=== PATIENT | female | born 1970 | race Caucasian/White ===

== ENCOUNTER 2020-06-12 20:00 | Outpatient (CLI) | payer OTHER, SELFPAY | END 2020-06-12 20:01 | disposition home or self-care (01) | LOC: SLEEP 06-13 08:54 | PROVIDERS: Family Provider Family Medicine; PCP Family Medicine; Visit Provider Family Medicine | DX: G47.10 Hypersomnia, unspecified (principal); R53.83 Other fatigue; R06.83 Snoring; G47.33 Obstructive sleep apnea (adult) (pediatric) | CPT/HCPCS: 95810 ==

== ENCOUNTER 2020-08-24 13:58 | Outpatient (CLI) | payer OTHER, SELFPAY ==
--- NOTE | 2020-08-24 14:05 | MM_ITS ---
WS: [id number] BILATERAL DIGITAL SCREENING MAMMOGRAPHY WITH CAD CLINICAL INFORMATION: SCREENING HISTORY: Screening mammogram. Bilateral breast soreness COMPARISON: August 05, 2015 TECHNIQUE: Bilateral CC and MLO views. FINDINGS: The breasts are composed of heterogeneous fibroglandular density tissue, which can limit the detectio n of small underlying mass lesions. No suspicious mass, asymmetry, calcifications, or architectural d istortion. No evidence of malignancy. MM/[place] [id number] IMPRESSION: BI-RADS: 1-Negative FOLLOW UP: 1 Year Follow-up Recommend return to annual screening mammography.
== END 2020-08-24 13:59 | disposition home or self-care (01) ==
LOC: RADSHAW 14:01
PROVIDERS: PCP Family Medicine; Visit Provider Family Medicine
DX: Z12.31 Encounter for screening mammogram for malignant neoplasm of breast (principal)
CPT/HCPCS: 77067

== ENCOUNTER 2022-05-05 16:01 | Emergency (ER) | payer SELFPAY ==
[2022-05-05 16:16] VITALS: BP 142/77; PULSE 90; RESP 18; TEMP 36.3; O2SAT 97; BMI 26.2
--- NOTE | 2022-05-05 16:29 | CTR_ITS ---
PROCEDURE INFORMATION: Exam: CT Head Without Contrast Exam date and time: 05/05/2022 5:00 PM Age: 51 years old Clinical indication: Injury or trauma; Fall; Blunt trauma (contusions or hematomas); Injury date: 6 days ago TECHNIQUE: Imaging protocol: Computed tomography of the head without contrast. Radiation optimization: All CT scans at this facility use at least one of these dose optimization techniques: automated exposure control; mA and/or kV adjustment per patient size (includes targeted exams where dose is matched to clinical indication); or iterative reconstruction. COMPARISON: CR XR cervical spine 3V* [id number] 09/20/2020 5:29 PM RADIATION DOSE METRICS: Total DLP (mGy-cm): 848.37 FINDINGS: Brain: Normal. No hemorrhage. Unremarkable white matter. No mass effect. Cerebral ventricles: No ventriculomegaly. Paranasal sinuses: Visualized sinuses are unremarkable. No fluid levels. Mastoid air cells: Visualized mastoid air cells are well aerated. Bones/joints: Unremarkable. No acute fracture. Soft tissues: Unremarkable. CT/CT head wo con* [id number] IMPRESSION: No acute intracranial abnormality.
--- NOTE | 2022-05-05 16:29 | CTR_ITS ---
PROCEDURE INFORMATION: Exam: CT Cervical Spine Without Contrast Exam date and time: 05/05/2022 5:05 PM Age: 51 years old Clinical indication: Injury or trauma; Fall; Blunt trauma; Injury date: 6 days ago TECHNIQUE: Imaging protocol: Computed tomography of the cervical spine without contrast. Radiation optimization: All CT scans at this facility use at least one of these dose optimization techniques: automated exposure control; mA and/or kV adjustment per patient size (includes targeted exams where dose is matched to clinical indication); or iterative reconstruction. COMPARISON: CR XR cervical spine 3V* [id number] 09/20/2020 5:29 PM RADIATION DOSE METRICS: Total DLP (mGy-cm): 472.08 FINDINGS: Bones/joints: Mild degenerative changes are seen in the mid to lower cervical spine. No area of significant canal stenosis. No cervical spine fracture is seen. Spinal alignment is normal. Lungs: Lung apices are normal. Soft tissues: Unremarkable. CT/CT cervical spin wo con* [id number] IMPRESSION: No cervical spine fracture.
--- NOTE | 2022-05-05 16:29 | CTR_ITS ---
PROCEDURE INFORMATION: Exam: CT Maxillofacial Without Contrast Exam date and time: 05/05/2022 5:03 PM Age: 51 years old Clinical indication: Injury or trauma; Fall; Blunt trauma (contusions or hematomas); Forehead and nose; Injury date: 6 days ago TECHNIQUE: Imaging protocol: Computed tomography of the of the face without contrast. Radiation optimization: All CT scans at this facility use at least one of these dose optimization techniques: automated exposure control; mA and/or kV adjustment per patient size (includes targeted exams where dose is matched to clinical indication); or iterative reconstruction. COMPARISON: CT head wo con* [id number] 05/05/2022 5:00 PM RADIATION DOSE METRICS: Total DLP (mGy-cm): 714.01 FINDINGS: Orbital cavities: Orbits are normal. Globes are unremarkable. Bones/joints: No acute fracture. Paranasal sinuses: Normal. No air-fluid levels. Soft tissues: Unremarkable. CT/CT facial bones wo con* [id number] IMPRESSION: No facial bone fracture.
--- NOTE | 2022-05-05 16:30 | ED_ITS ---
HPI - Fall General: Chief Complaint: Fall Stated Complaint: Fell, Hit head, neck pain Time Seen by Provider: 05/05/22 16:27 History of Present Illness: 51-year-old presents due to headache and neck pain. States that she had a mechanical fall while tripping on a shopping cart Friday. She did not pass out. Denies any focal numbness weakness or tingling. Reports headache and midline neck pain. She reports ecchymosis around her eyes. Denies any other focal pain or injury. Review of Systems Narrative: - CONSTITUTIONAL: Denies weight loss, fever and chills. - HEENT: Denies changes in vision and hearing. - RESPIRATORY: Denies SOB and cough. - CV: Denies palpitations and CP. - GI: Denies abdominal pain, nausea, vomiting and diarrhea. - : Denies dysuria and urinary frequency. - MSK: Denies myalgia and joint pain. - SKIN: Denies rash and pruritus. - NEUROLOGICAL: As above - PSYCHIATRIC: Denies suicidal ideation Physical Exam Narrative: EXAM NARRATIVE: - GENERAL: Alert and oriented x 3. No acute distress. Well-nourished. - EYES: EOMI. Anicteric. - HENT: Bilateral periorbital ecchymoses, healing, no nasal septal hematoma, no hemotympanum, no bony ligamentous laxity no C-spine tenderness. Moist mucous membranes. No scleral icterus. No cervical lymphadenopathy. - LUNGS: Clear to auscultation bilaterally. No accessory muscle use. Equal lung sounds bilaterally. No respiratory distress. - CARDIOVASCULAR: Regular rate and rhythm. No murmur. No JVD. - ABDOMEN: Soft, non-tender and non-distended. Negative CVA tenderness bilaterally, no rebound or guarding, negative Ledbetter sign. No palpable masses. - EXTREMITIES: No edema. Non-tender. - SKIN: No rashes or lesions. Warm. - NEUROLOGIC: No meningismus or focal neurological deficits. CN II-XII grossly intact. - PSYCHIATRIC: Cooperative. Appropriate mood and affect. Course Vital Signs: Vital signs: Vital Signs Temperature 97.4 F L 05/05/22 16:16 Pulse Rate 90 05/05/22 16:16 Respiratory Rate 18 05/05/22 16:16 Blood Pressure 142/77 05/05/22 16:16 Pulse Oximetry 97 05/05/22 16:16 MDM - Fall Medical Decision Making 51-year-old presents due to headache and neck pain after fall. Nonfocal neurologic exam. No sign of other focal injury. CT scan of the head C-spine and facial bones not reveal any intracranial hemorrhage fracture or dislocation. At this time I believe patient would be safe for discharge and outpatient follow-up. Return precautions provided. Plan was reviewed with the patient who expressed understanding. Questions answered. Patient will follow up with PCP. Patient discharged in stable condition. Lab Data Radiology Impressions Cervical Spine CT 05/05/22 16:29 IMPRESSION: No cervical spine fracture. Face CT 05/05/22 16:29 IMPRESSION: No facial bone fracture. Head CT 05/05/22 16:29 IMPRESSION: No acute intracranial abnormality. 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
[2022-05-05] MEDS: acetaminophen 500 mg Tablet PO (16:44)
== END 2022-05-05 17:54 | disposition home or self-care (01) ==
PROVIDERS: Emergency Provider Emergency Medicine; PCP Family Medicine
DX: S09.90XA Unspecified injury of head, initial encounter (principal); W18.09XA Striking against other object with subsequent fall, initial encounter
CPT/HCPCS: 70450; 70486; 72125; 99283

== ENCOUNTER 2022-12-19 16:04 | Emergency (ER) | payer SELFPAY ==
[2022-12-19 16:19] VITALS: BP 128/83; PULSE 85; RESP 18; TEMP 36.7; O2SAT 100; BMI 27.4
[2022-12-19 18:07] LABS: Basophils % 0.5 %; Eosinophils # 0.1 10^3/uL (0.0-0.8); Eosinophils % 0.7 %; Hematocrit 37.8 % (37.0-47.0); Hemoglobin 12.6 g/dL (11.5-15.3); Lymphocytes # 2.4 10^3/uL (0.8-4.8); Lymphocytes % 31.8 %; Mean Corpuscular HGB Conc 33.3 g/dL (30.0-36.0); Mean Corpuscular Hemoglobin 31.7 pg (28.0-34.0); Mean Platelet Volume 9.4 fL (7.4-10.4); Monocytes # 0.5 10^3/uL (0.2-0.9); Monocytes % 6.2 %; Neutrophils # 4.49 10^3/uL (1.8-7.7); Neutrophils % 60.7 %; Nucleated Red Blood Cells % 0 %; Platelet Count 180 10^3/cmm (130-400); Red Blood Count 3.98 10^6/uL (4.1-5.3); Red Cell Distribution Width 11.8 % (12.1-15.1); White Blood Count 7.4 10^3/uL (4.0-10.0)
[2022-12-19 19:14] LABS: Alanine Aminotransferase 16 U/L (0-33); Albumin Level 4.7 g/dL (3.5-5.2); Alkaline Phosphatase 74 U/L (35-105); Anion Gap 13.8 (5-19); Aspartate Amino Transferase 16 U/L (0-32); Blood Urea Nitrogen 16 mg/dL (6-20); Calcium 9.1 mg/dL (8.5-10.5); Carbon Dioxide 27 mmol/L (22-29); Chloride 101 mmol/L (98-107); Creatinine Clr Calc Pharmacy 99.1716; Globulin 1.5 g/dL (1.3-4.6); Glucose 138 mg/dL (65-115); Lipase 38 U/L (13-60); Osmolality Calculated 289 mOsm/kg (285-295); Potassium 3.8 mmol/L (3.5-5.1); Sodium 138 mmol/L (136-145); Total Bilirubin 0.2 mg/dL (0.15-1.2); Total Protein 6.2 g/dL (6.6-8.7)
[2022-12-19 19:46] VITALS: BP 132/89; PULSE 80; RESP 16; O2SAT 99
--- NOTE | 2022-12-19 19:47 | CTR_ITS ---
PROCEDURE INFORMATION: Exam: CT Abdomen And Pelvis With Contrast Exam date and time: 12/19/2022 8:55 PM Age: 52 years old Clinical indication: Abdominal pain; Localized; Right; Prior surgery; Surgery type: Csection. Iud. Patient HX: C/O RT sided abd pain with diarrhea; Additional info: Rlq pain TECHNIQUE: Imaging protocol: Computed tomography of the abdomen and pelvis with contrast. Radiation optimization: All CT scans at this facility use at least one of these dose optimization techniques: automated exposure control; mA and/or kV adjustment per patient size (includes targeted exams where dose is matched to clinical indication); or iterative reconstruction. Contrast material: OMNI 350; Contrast volume: 100 ml; Contrast route: INTRAVENOUS (IV); Other protocol: This patient has received 3 known CTs and 0 known cardiac nuclear medicine studies in the 12 months prior to the current study. COMPARISON: US pelv w/transvag [id number] 07/30/2016 4:04 PM RADIATION DOSE METRICS: Total DLP (mGy-cm): 509.83 FINDINGS: Lungs: Right lower lobe calcified granuloma. Liver: Normal. No mass. Gallbladder and bile ducts: Normal. No calcified stones. No ductal dilation. Pancreas: Normal. No ductal dilation. Spleen: Calcified granulomas in the spleen. Adrenal glands: Normal. No mass. Kidneys and ureters: Round hypodensity in the right kidney is too small to characterize but is most likely a tiny cyst. No follow-up imaging is recommended. The kidneys are otherwise unremarkable. No calculus or hydronephrosis. Stomach and bowel: Unremarkable. No obstruction. No mucosal thickening. Appendix: The appendix is not visualized. No secondary signs of appendicitis. Intraperitoneal space: Unremarkable. No free air. No significant fluid collection. Vasculature: Unremarkable. No abdominal aortic aneurysm. Lymph nodes: Unremarkable. No enlarged lymph nodes. Urinary bladder: Unremarkable as visualized. Reproductive: IUD in standard position within the uterus. 3.7 cm left ovarian cyst, Hounsfield units less than 20. The uterus and right ovary are unremarkable. Bones/joints: Unremarkable. No acute fracture. Soft tissues: Small fat containing umbilical hernia. CT/CT abdomen pelvis w con* [id number] IMPRESSION: 1. No acute findings. 2. 3.7 cm left ovarian cyst. No further imaging is recommended. (Reference: Jung) References: Jung et al. Management of Incidental Adnexal Findings on CT and MRI: A White Paper of the ACR Incidental Findings Committee, J Am Marquita Radiol. 2019;17(2):248-254. COMMENTS: Consistent with the [employer]'s Incidental Findings Committee white paper (J Am Marquita Radiol 2018): Any incidental renal lesion less than 1 cm or classified as too small to characterize, or any incidental cystic renal lesion characterized as simple-appearing, is likely benign. No follow-up imaging is recommended for these lesions per consensus recommendations based on imaging criteria.
--- NOTE | 2022-12-19 19:54 | ED_ITS ---
HPI - Abdominal Pain General: Chief Complaint: Abdominal Pain Stated Complaint: abd pain Time Seen by Provider: 12/19/22 19:44 Source: patient Mode of arrival: ambulatory Limitations: no limitations History of Present Illness: 52-year-old female states she has been having abdominal pain since yesterday states yesterday she had some diarrhea none today states that today she started having worsening right lower quadrant pain states it seems to come in waves her pain is currently a 5 out of 10 she had no vomiting has had some nausea history of a in the past no other surgeries. Associated Symptoms: Reports diarrhea; Denies chills, dysuria and fever(s) Review of Systems Const: Denies: fever(s), chills, body aches or change in appetite Eyes: Denies: blurry vision or eye discomfort ENMT: Denies: throat pain or dental pain Card: Denies: chest pain Resp: Denies: dyspnea GI: Reports: abdominal pain and diarrhea : Denies: dysuria Musc: Denies: neck pain or back pain Skin/Breast: Denies: rash Neuro: Denies: headache(s) Psych: Denies: depression Pawan/Lymph: Denies: easy bruising All/Imm: Denies: urticaria PFSH ED PFSH: Medical History (Updated 12/19/22 @ 21:44 by Parvez Lenz MD) No pertinent past medical history Social History (Updated 12/19/22 @ 19:54 by Parvez Lenz MD) Substance/Drug Use: never Physical Exam Const: COMMON NORMALS: no acute distress, patient oriented x3 and healthy appearing HENMT: COMMON NORMALS: normocephalic and atraumatic HEAD & SCALP: normocephalic and atraumatic Eye: COMMON NORMALS: Equal, round and reactive pupils present and EOMs intact bilaterally PUPIL: Yes Equal, round and reactive pupils present Neck/C-Spine: COMMON NORMALS: full ROM and supple Chest: COMMONS NORMALS: normal inspection of the chest and normal palpation of entire chest wall Resp: COMMON NORMALS: normal respiratory effort, No retractions, No use of accessory muscles and clear to auscultation bilaterally AUSCULTATION: clear to auscultation bilaterally Cardio: COMMON NORMALS: regular rate, regular rhythm and No murmurs present (Cardio) RATE: regular rate RHYTHM: regular rhythm GI: COMMON NORMALS: Normal to inspection, nondistended, normoactive bowel sounds present, Soft to palpation and no masses PALPATION: Yes Soft to palpation and Yes Tenderness to palpation present (GI) Details: RLQ Extremity: COMMON NORMALS: normal to inspection and full ROM Neuro: COMMON NORMALS: patient oriented x3, moves all extremities and no focal motor deficits Psych: COMMON NORMALS: mental status grossly normal, Normal thought process present and cooperative THOUGHT PROCESS: Normal thought process present Skin: COMMON NORMALS: no rashes or lesions noted and no wounds GENERAL SKIN EXAM: no rashes or lesions noted Course Vital Signs: Vital signs: Vital Signs Temperature 98.0 F 12/19/22 16:19 Pulse Rate 60 12/19/22 21:00 Respiratory Rate 16 12/19/22 20:42 Blood Pressure 158/99 12/19/22 21:00 Pulse Oximetry 97 12/19/22 21:00 Oxygen Delivery Me thod 12/19/22 16:19 MDM - Abdominal Pain Medical Decision Making Patient presents here with abdominal pain CT abdomen shows a small ovarian cyst no other findings at this time blood work is normal her pain is improved she is stable for discharge she is to follow-up with PCP and return if worsening. Lab Data 12/19/22 17:53 12/19/22 17:53 Labs/Radiology: Radiology Impressions Abdomen/Pelvis CT 12/19/22 19:47 IMPRESSION: 1. No acute findings. 2. 3.7 cm left ovarian cyst. No further imaging is recommended. (Reference: Jung) References: Jung et al. Management of Incidental Adnexal Findings on CT and MRI: A White Paper of the ACR Incidental Findings Committee, J Am Marquita Radiol. 2019;17(2):248-254. COMMENTS: Consistent with the [employer]'s Incidental Findings Committee white paper (J Am Marquita Radiol 2018): Any incidental renal lesion less than 1 cm or classified as too small to characterize, or any incidental cystic renal lesion characterized as simple-appearing, is likely benign. No follow-up imaging is recommended for these lesions per consensus recommendations based on imaging criteria. ADDENDUM: 12/19/222130 As it pertains to the 3.7 cm left ovarian cyst, no further imaging is recommended if patient is premenopausal. If the patient is postmenopausal follow-up ultrasound in 6-12 months is recommended. Laboratory Results WBC 7.4 10^3/uL (4.0-10.0) 12/19/22 17:53 RBC 3.98 10^6/uL (4.1-5.3) L 12/19/22 17:53 Hgb 12.6 g/dL (11.5-15.3) 12/19/22 17:53 Hct 37.8 % (37.0-47.0) 12/19/22 17:53 MCV 95.0 fl (81-99) 12/19/22 17:53 MCH 31.7 pg (28.0-34.0) 12/19/22 17:53 MCHC 33.3 g/dL (30.0-36.0) 12/19/22 17:53 RDW 11.8 % (12.1-15.1) L 12/19/22 17:53 Plt Count 180 10^3/cmm (130-400) 12/19/22 17:53 MPV 9.4 fL (7.4-10.4) 12/19/22 17:53 Neut % (Auto) 60.7 % 12/19/22 17:53 Lymph % (Auto) 31.8 % 12/19/22 17:53 [place] % (Auto) 6.2 % 12/19/22 17:53 Eos % (Auto) 0.7 % 12/19/22 17:53 Baso % (Auto) 0.5 % 12/19/22 17:53 Neut # (Auto) 4.49 10^3/uL (1.8-7.7) 12/19/22 17:53 Lymph # (Auto) 2.4 10^3/uL (0.8-4.8) 12/19/22 17:53 [place] # (Auto) 0.5 10^3/uL (0.2-0.9) 12/19/22 17:53 Eos # (Auto) 0.1 10^3/uL (0.0-0.8) 12/19/22 17:53 Baso # (Auto) 0.0 10^3/uL (0.0-0.1) 12/19/22 17:53 Nucleated RBC % (auto) 0 % 12/19/22 17:53 Nucleated RBCs # 0.0 /100WBC 12/19/22 17:53 Sodium 138 mmol/L (136-145) 12/19/22 17:53 Potassium 3.8 mmol/L (3.5-5.1) 12/19/22 17:53 Chloride 101 mmol/L (98-107) 12/19/22 17:53 Carbon Dioxide 27 mmol/L (22-29) 12/19/22 17:53 Anion Gap 13.8 (5-19) 12/19/22 17:53 BUN 16 mg/dL (6-20) 12/19/22 17:53 Creatinine 0.6 mg/dL (0.5-0.9) 12/19/22 17:53 GFR Calculation 105.0 mL/min (90-130) 12/19/22 17:53 Glucose 138 mg/dL (65-115) H 12/19/22 17:53 Calculated Osmolality 289 mOsm/kg (285-295) 12/19/22 17:53 Calcium 9.1 mg/dL (8.5-10.5) 12/19/22 17:53 Total Bilirubin 0.2 mg/dL (0.15-1.2) 12/19/22 17:53 AST 16 U/L (0-32) 12/19/22 17:53 ALT 16 U/L (0-33) 12/19/22 17:53 Alkaline Phosphatase 74 U/L (35-105) 12/19/22 17:53 Total Protein 6.2 g/dL (6.6-8.7) L 12/19/22 17:53 Albumin 4.7 g/dL (3.5-5.2) 12/19/22 17:53 Globulin 1.5 g/dL (1.3-4.6) 12/19/22 17:53 Lipase 38 U/L (13-60) 12/19/22 17:53 Urine Color Yellow (Yellow) 12/19/22 19:00 Urine Appearance Sl hazy (CLEAR) A 12/19/22 19:00 Urine pH 8 (5-7) H 12/19/22 19:00 Ur Specific [place] 1.020 (1.005-1.030) 12/19/22 19:00 Urine Protein Neg (Negative) 12/19/22 19:00 Urine Glucose (UA) Norm (Normal) 12/19/22 19:00 Urine Ketones Negative (Negative) 12/19/22 19:00 Urine Blood Neg (Negative) 12/19/22 19:00 Urine Nitrate Negative (Negative) 12/19/22 19:00 Urine Bilirubin Neg (Negative) 12/19/22 19:00 Prot Sulfosalicylic Acd Negative (Negative) 12/19/22 19:00 Urine Urobilinogen Norm mg/dL (Negative) 12/19/22 19:00 Ur Leukocyte Esterase Negative (Negative) 12/19/22 19:00 Urine RBC 0-4 /hpf (0-2) H 12/19/22 19:00 Urine WBC 0-4 /hpf (0-5) H 12/19/22 19:00 Ur Squamous Epith Cells 0-4 /hpf (0-5) H 12/19/22 19:00 Amorphous Sediment Not Reportable 12/19/22 19:00 Urine Bacteria Not Reportable 12/19/22 19:00 Urine Mucus Trace /hpf 12/19/22 19:00 Discharge Plan Discharge Patient Disposition: Home Clinical Impression: Abdominal pain, Ovarian cyst Prescriptions: New hydrocodone-acetaminophen 5-325 mg tablet 1 tab PO Q6H PRN (Reason: pain) Qty: 14 0RF ondansetron 4 mg tablet,disintegrating 4 mg PO Q6H PRN (Reason: nausea and vomiting) Qty: 14 0RF Discharge Orders: Discharge ED (Routine); Ordered 12/19/22 Ordered By: Parvez Lenz Referrals: Ricardo Davidson MD [Primary Care Provider] - 1-3 days Discharge Diet: Advance as tolerated Discharge Activity: Resume usual activity Patient Instructions: Abdominal Pain (ED), Opioid Safety Coding Level of Care 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
[2022-12-19 20:11] LABS: Urine Color Yellow (Yellow)
[2022-12-19 20:12] LABS: Urine Appearance SL Hazy (CLEAR); pH Urine 8 (5-7)
[2022-12-19 20:13] LABS: Sulfosalicylic Acid Urine Negative (Negative)
[2022-12-19 20:15] LABS: Add Urine Microscopic? YES
[2022-12-19 20:18] LABS: Add Urine Culture? No
[2022-12-19 20:34] VITALS: RESP 16
[2022-12-19] MEDS: morphine 4 mg/mL SDV 1 mL IVP (20:34)
[2022-12-19] MEDS: ondansetron 2 mg/ML SDV 2 mL 4 MG IVP (20:34)
[2022-12-19] MEDS: sodium chloride 0.9% 1,000 ML 999 ML IV (20:35)
[2022-12-19 20:42] VITALS: BP 131/59; PULSE 75; RESP 16; O2SAT 100
[2022-12-19] MEDS: iohexol 350 mg/mL 500 mL Btl (per mL) IV (20:59)
[2022-12-19 21:00] VITALS: BP 158/99; PULSE 60; O2SAT 97
[2022-12-19 21:40] LABS: Mucus Urine TRACE /hpf; RBC Urine 0-4 /hpf (0-2); Squamous Epithelial Cell Urine 0-4 /hpf (0-5); WBC Urine 0-4 /hpf (0-5)
[2022-12-19 21:43] LABS: Bilirubin Urine Neg (Negative); Blood Urine Neg (Negative); Glucose Urine UA Norm (Normal); Ketones Urine Negative (Negative); Leukocyte Esterase Urine Negative (Negative); Nitrate Urine Negative (Negative); Protein Urine Neg (Negative); Urobilinogen Urine Norm (Negative)
[2022-12-19] MEDS: HYDROcodone-acetaminophen 5-325 mg Tablet 2 TAB PO (22:03)
[2022-12-19 22:12] VITALS: BP 133/67; PULSE 69; RESP 16; O2SAT 94
== END 2022-12-19 22:14 | disposition home or self-care (01) ==
PROVIDERS: Nurse Practitioner Family; Emergency Provider Emergency Medicine; PCP Family Medicine
DX: N83.202 Unspecified ovarian cyst, left side
CPT/HCPCS: 36415; 74177; 80053; 81001; 83690; 85025; 96374; 96375; 99285; J2270; J2405; J7030; Q9967

== ENCOUNTER 2024-05-28 16:15 | Emergency (ER) | payer SELFPAY ==
[2024-05-28 16:17] VITALS: BP 123/68; PULSE 70; RESP 16; TEMP 36.7; O2SAT 99
--- NOTE | 2024-05-28 16:45 | W.ED.RECABL ---
HPI - Recheck/Abnormal Lab/Rx General: Chief Complaint: Recheck/Abnormal Lab/Rx Stated Complaint: low sodium, dr referral Time Seen by Provider: 05/28/24 16:33 History of Present Illness: 53-year-old female who presents to the emergency room at the instruction of her primary care physician. She had had some diarrhea after traveling. They checked labs and her sodium was down to 123 so they told her to come to the emergency room. Said she has had some generalized weakness but the diarrhea etc. have cleared up. No altered mental status. No focal motor deficits. No chest pain. No focal abdominal pain. Review of Systems Narrative: Constitutional symptoms: Negative except as documented in HPI. Skin symptoms: Negative except as documented in HPI. Eye symptoms: Negative except as documented in HPI. ENMT symptoms: Negative except as documented in HPI. Respiratory symptoms: Negative except as documented in HPI. Cardiovascular symptoms: Negative except as documented in HPI. Gastrointestinal symptoms: Negative except as documented in HPI. Genitourinary symptoms: Negative except as documented in HPI. Musculoskeletal symptoms: Negative except as documented in HPI. Neurologic symptoms: Negative except as documented in HPI. Psychiatric symptoms: Negative except as documented in HPI. Endocrine symptoms: Negative except as documented in HPI. [facility] ED PFSH: Medical History (Updated 05/28/24 @ 17:37 by Sara Peralta MD) No pertinent past medical history Social History (Updated 12/19/22 @ 19:54 by Parvez Lenz MD) Substance/Drug Use: never Physical Exam Narrative: EXAM NARRATIVE: General: Alert, no acute distress. Skin: Warm, dry. Head: Normocephalic, atraumatic. Neck: Supple, trachea midline. Eye: Extraocular movements are intact. Ears, nose, mouth and throat: Tacky oral mucosa Cardiovascular: Regular, Normal peripheral perfusion. Respiratory: Lungs are clear to auscultation, respirations are non-labored, breath sounds are equal, Symmetrical chest wall expansion. Gastrointestinal: Soft, Nontender, Non distended Musculoskeletal: Normal ROM, no deformity. Neurological: Alert and oriented, No focal neurological deficit observed. Psychiatric: Cooperative, appropriate mood & affect. Course Vital Signs: Vital signs: Vital Signs Temperature 98.1 F 05/28/24 16:17 Pulse Rate 66 05/28/24 17:21 Respiratory Rate 16 05/28/24 16:17 Blood Pressure 132/73 05/28/24 17:21 Pulse Oximetry 100 05/28/24 17:21 Oxygen Delivery Me thod Room Air 05/28/24 16:17 MDM - Recheck/Abnormal Lab/Rx Medical Decision Making Lab Review: Laboratory results were reviewed and interpreted by myself the emergency room physician. No leukocytosis. Sodium is improved to 133. She has received some fluids here. I reviewed the patient's medical record. Reexamination: Patient remained stable. No increased work of breathing. No altered mental status. No focal motor deficits. Assessment and plan: Dehydration ? Normal saline bolus - Discharged home - Discussed plan with patient. Answered any questions. - Evaluation and treatment of this problem were appropriate in the emergency setting. Lab Data 05/28/24 16:40 05/28/24 16:40 Laboratory Results WBC 6.62 10^3/uL (3.29-11.43) 05/28/24 16:40 RBC 3.83 10^6/uL (3.85-5.65) L 05/28/24 16:40 Hgb 12.60 g/dL (11.27-16.99) 05/28/24 16:40 Hct 36.0 % (36-47) 05/28/24 16:40 MCV 94.0 fl (85-98) 05/28/24 16:40 MCH 32.9 pg (27-33) 05/28/24 16:40 MCHC 35.0 g/dL (30-55) 05/28/24 16:40 RDW 12.1 % (12.1-15.1) 05/28/24 16:40 Plt Count 165 10^3/cmm (157-399) 05/28/24 16:40 MPV 9.2 fL (7.4-10.4) 05/28/24 16:40 Neut % (Auto) 46.6 % 05/28/24 16:40 Lymph % (Auto) 41.2 % 05/28/24 16:40 [place] % (Auto) 10.0 % 05/28/24 16:40 Eos % (Auto) 1.2 % 05/28/24 16:40 Baso % (Auto) 0.8 % 05/28/24 16:40 Neut # (Auto) 3.09 10^3/uL (1.8-7.7) 05/28/24 16:40 Lymph # (Auto) 2.7 10^3/uL (0.8-4.8) 05/28/24 16:40 [place] # (Auto) 0.7 10^3/uL (0.2-0.9) 05/28/24 16:40 Eos # (Auto) 0.1 10^3/uL (0.0-0.8) 05/28/24 16:40 Baso # (Auto) 0.1 10^3/uL (0.0-0.1) 05/28/24 16:40 Nucleated RBC % (auto) 0 % 05/28/24 16:40 Nucleated RBCs # 0.0 /100WBC 05/28/24 16:40 Sodium 133 mmol/L (136-145) L 05/28/24 16:40 Potassium 3.9 mmol/L (3.5-5.1) 05/28/24 16:40 Chloride 99 mmol/L (98-107) 05/28/24 16:40 Carbon Dioxide 22 mmol/L (22-29) 05/28/24 16:40 Anion Gap 15.9 (5-19) 05/28/24 16:40 BUN 16 mg/dL (6-20) 05/28/24 16:40 Creatinine 0.6 mg/dL (0.5-0.9) 05/28/24 16:40 GFR Calculation 104.6 mL/min (90-130) 05/28/24 16:40 Glucose 92 mg/dL (65-115) 05/28/24 16:40 Calculated Osmolality 277 mOsm/kg (285-295) L 05/28/24 16:40 Calcium 8.8 mg/dL (8.5-10.5) 05/28/24 16:40 Magnesium 1.9 mg/dL (1.7-2.3) 05/28/24 16:40 Total Bilirubin 0.2 mg/dL (0.15-1.2) 05/28/24 16:40 AST 16 U/L (0-32) 05/28/24 16:40 ALT 19 U/L (0-33) 05/28/24 16:40 Alkaline Phosphatase 66 U/L (35-105) 05/28/24 16:40 Total Protein 6.6 g/dL (6.6-8.7) 05/28/24 16:40 Albumin 4.4 g/dL (3.5-5.2) 05/28/24 16:40 Globulin 2.2 g/dL (1.3-4.6) 05/28/24 16:40 All radiology interpretation(s) finalized by discharge Discharge Plan Discharge Patient Disposition: Home Clinical Impression: Dehydration Condition: Stable Prescriptions: No Action hydrocodone-acetaminophen 5-325 mg tablet 1 tab PO Q6H PRN (Reason: pain) Qty: 14 0RF ondansetron 4 mg tablet,disintegrating 4 mg PO Q6H PRN (Reason: nausea and vomiting) Qty: 14 0RF Discharge Orders: Discharge ED (Routine); Ordered 05/28/24 Ordered By: Sara Peralta Referrals: Ricardo Davidson MD [Primary Care Provider] - Discharge Diet: Usual diet Discharge Activity: Increase activity as tolerated Patient Instructions: Dehydration (ED) Activity Restrictions/Additional Instructions: Thank you for choosing [facility] for your healthcare needs today. Please realize this is an emergency room and that we are providing you with a medical screening exam and this may not be complete and all inclusive of all the testing and or work up that you may need to determine your ailment or severity of your illness. You have been screened and evaluated and felt safe for discharge. Health conditions do change or evolve sometimes and as such it is important that you follow up with your Primary Doctor to be re checked, 3-5 days is a general good time frame for follow up. You are always welcome to return to the ED for re assessment if your symptoms are worsening or you have new concerns Coding Level of Care Code ED Search Analyst for Melody Carvalho
[2024-05-28 16:47] LABS: Basophils # 0.1 10^3/uL (0.0-0.1); Basophils % 0.8 %; Eosinophils # 0.1 10^3/uL (0.0-0.8); Eosinophils % 1.2 %; Lymphocytes # 2.7 10^3/uL (0.8-4.8); Lymphocytes % 41.2 %; Mean Corpuscular Hemoglobin 32.9 pg (27-33); Mean Platelet Volume 9.2 fL (7.4-10.4); Monocytes # 0.7 10^3/uL (0.2-0.9); Neutrophils # 3.09 10^3/uL (1.8-7.7); Neutrophils % 46.6 %; Nucleated Red Blood Cells % 0 %; Platelet Count 165 10^3/cmm (157-399); Red Blood Count 3.83 10^6/uL (3.85-5.65); Red Cell Distribution Width 12.1 % (12.1-15.1); White Blood Count 6.62 10^3/uL (3.29-11.43)
[2024-05-28] MEDS: sodium chloride 0.9% 1,000 ML 999 ML IV (16:51)
[2024-05-28 17:09] LABS: Alanine Aminotransferase 19 U/L (0-33); Albumin Level 4.4 g/dL (3.5-5.2); Alkaline Phosphatase 66 U/L (35-105); Anion Gap 15.9 (5-19); Aspartate Amino Transferase 16 U/L (0-32); Blood Urea Nitrogen 16 mg/dL (6-20); Calcium 8.8 mg/dL (8.5-10.5); Carbon Dioxide 22 mmol/L (22-29); Chloride 99 mmol/L (98-107); Globulin 2.2 g/dL (1.3-4.6); Glomerular Filtration Rate 104.6 mL/min (90-130); Glucose 92 mg/dL (65-115); Magnesium 1.9 mg/dL (1.7-2.3); Osmolality Calculated 277 mOsm/kg (285-295); Potassium 3.9 mmol/L (3.5-5.1); Sodium 133 mmol/L (136-145); Total Bilirubin 0.2 mg/dL (0.15-1.2); Total Protein 6.6 g/dL (6.6-8.7)
[2024-05-28 17:21] VITALS: BP 132/73; PULSE 66; O2SAT 100
[2024-05-28 17:43] VITALS: BP 132/73; PULSE 70; RESP 21; O2SAT 100
== END 2024-05-28 17:44 | disposition home or self-care (01) ==
PROVIDERS: Emergency Provider Emergency Medicine; PCP Family Medicine
DX: E86.0 Dehydration (principal)
CPT/HCPCS: 80053; 83735; 85025; 99284; J7030

== ENCOUNTER 2025-05-17 10:01 | Outpatient (CLI) | payer SELFPAY ==
--- NOTE | 2025-05-17 10:14 | MM_ITS ---
WS: [id number] DIAGNOSTIC BILATERAL DIGITAL BREAST TOMOSYNTHESIS MAMMOGRAPHY WITH CAD LEFT breast ultrasound, limited HISTORY: NIPPLE DISCHARGE,BLOODY, LEFT nipple discharge. COMPARISON: 08/24/2020, 08/04/2015 TECHNIQUE: Bilateral craniocaudad, mediolateral oblique, and mediolateral views are submitted with tomosynthesis and SM. Computer aided detection utilized. Breast composition: The breasts are heterogeneously dense, which may obscure small masses. Benign calcification central LEFT breast. No dilated ducts are identified. No masses or nipple retraction. No architectural distortion of either breast. LEFT breast, Limited. Ultrasound directed around the areola. There are no dilated ducts. No masses are identified within the ducts. There is a minimally complex cyst at 3:00 measuring 0.6 x 0.6 x 0.7 cm. MM/MM diag BI tomosynthesis [id number] IMPRESSION: BI-RADS: 2 - Benign FOLLOW UP: 1 Year Follow-up No abnormality noted subareolar ducts LEFT breast. If bloody nipple discharge p ersists MRI may be helpful.
== END 2025-05-17 10:02 | disposition home or self-care (01) ==
LOC: RAD 10:05
PROVIDERS: PCP Family Medicine; Visit Provider Family Medicine
DX: N64.52 Nipple discharge (principal)
CPT/HCPCS: 76642; 77062; G0279